=== PATIENT | male | born 1955 | race Caucasian/White ===

== ENCOUNTER 2017-02-18 07:36 | Outpatient (CLI) | payer BC, OTHER | END 2017-02-18 23:59 | DX: Z00.00 Encounter for general adult medical examination without abnormal findings (principal); E11.9 Type 2 diabetes mellitus without complications; Z79.899 Other long term (current) drug therapy; Z12.5 Encounter for screening for malignant neoplasm of prostate; E78.2 Mixed hyperlipidemia ==

== ENCOUNTER 2018-07-06 09:51 | Outpatient (CLI) | payer OTHER ==
[2018-07-06 17:42] LABS: BASOPHILS % (AUTO) 0.7 %; EOSINOPHILS # (AUTO) 0.1 10^3/uL (0.0-0.7); HGB - HEMOGLOBIN 14.9 g/dL (14.0-18.0); LYMPHOCYTES # (AUTO) 1.9 10^3/uL (1.5-3.5); LYMPHOCYTES % (AUTO) 30.8 %; MEAN CORPUSCULAR HEMOGLOBIN 27.9 pg (27.0-31.0); MEAN CORPUSCULAR HGB CONC 33.6 g/dL (32.0-36.0); MEAN CORPUSCULAR VOLUME 83.1 fL (80.0-94.0); MONOCYTES # (AUTO) 0.6 10^3/uL (0.0-1.0); MONOCYTES % (AUTO) 9.2 %; NEUTROPHILS # (AUTO) 3.6 10^3/uL (1.5-6.6); NEUTROPHILS % (AUTO) 57.3 %; PLT - PLATELET COUNT 232 10^3/uL (130-450); RED BLOOD COUNT 5.34 10^6/uL (4.70-6.10); RED CELL DISTRIBUTION WIDTH 14.4 % (12.0-15.0); WHITE BLOOD COUNT 6.2 x10^3/uL (4.8-10.8)
[2018-07-06 18:08] LABS: ALBUMIN 3.9 g/dL (3.2-5.5); ALBUMIN/GLOBULIN RATIO 1.2 (1.0-2.2); ALKALINE PHOSPHATASE 66 IU/L (42-121); ALT ALANINE AMINOTRANSFERASE 25 IU/L (10-60); AST ASPARTATE AMINOTRANSFERASE 18 IU/L (10-42); BILIRUBIN,TOTAL 0.7 mg/dL (0.2-1.0); BUN - BLOOD UREA NITROGEN 15 mg/dL (6-20); CARBON DIOXIDE - CO2 25 mmol/L (21-32); CHLORIDE 101 mmol/L (101-111); CHOL/HDL RATIO 4.1 (<5.0); CHOLESTEROL 135 mg/dL; CREATININE 1.1 mg/dL (0.6-1.2); GFR - MDRD 68 (>89); GLUCOSE 153 mg/dL (70-100); HDL CHOLESTEROL 33 mg/dL; LDL CHOLESTEROL,CALCULATED 78 mg/dL; LDL/HDL RATIO 2.4 (<3.6); SODIUM 134 mmol/L (135-145); TOTAL PROTEIN 7.2 g/dL (6.7-8.2); VLDL CHOLESTEROL 24 mg/dL
[2018-07-06 18:09] LABS: HB2 TOTAL 15.8 g/dL; HEMOGLOBIN A1C 0.92 g/dL; HEMOGLOBIN A1C % 7.5 % (4.6-6.2)
[2018-07-07 13:41] LABS: HEPATITIS C ANTIBODY NON-REACTIVE (NON-REACTIVE)
== END 2018-07-06 09:52 | disposition home or self-care (01) ==
LOC: LAB.F 09:51
PROVIDERS: ATTEND Physician Assistant Medical
DX: E11.9 Type 2 diabetes mellitus without complications (principal); I10 Essential (primary) hypertension; E78.2 Mixed hyperlipidemia; I25.10 Atherosclerotic heart disease of native coronary artery without angina pectoris; Z12.5 Encounter for screening for malignant neoplasm of prostate; Z13.818 Encounter for screening for other digestive system disorders; Z72.89 Other problems related to lifestyle
CPT/HCPCS: 36415; 80053; 80061; 83036; 83721; 84153; 85025; 86803

== ENCOUNTER 2019-11-06 08:40 | Outpatient (CLI) | payer BC ==
[2019-11-06 10:15] LABS: CALCIUM 9.7 mg/dL (8.5-10.3)
[2019-11-06 10:35] LABS: HB2 TOTAL 14.6 g/dL; HEMOGLOBIN A1C 1.18 g/dL; HEMOGLOBIN A1C % 9.5 % (4.6-6.2)
== END 2019-11-06 08:41 | disposition home or self-care (01) ==
LOC: LAB.S 08:40
PROVIDERS: ATTEND Nurse Practitioner
DX: E11.9 Type 2 diabetes mellitus without complications (principal)
CPT/HCPCS: 36415; 80048; 83036

== ENCOUNTER 2020-07-17 08:30 | Outpatient (CLI) | payer BC ==
[2020-07-17 15:33] LABS: BASOPHILS % (AUTO) 0.4 %; EOSINOPHILS # (AUTO) 0.2 10^3/uL (0.0-0.7); EOSINOPHILS % (AUTO) 1.8 %; LYMPHOCYTES # (AUTO) 2.7 10^3/uL (1.5-3.5); LYMPHOCYTES % (AUTO) 28.4 %; MEAN CORPUSCULAR HEMOGLOBIN 27.3 pg (27.0-31.0); MEAN CORPUSCULAR HGB CONC 31.7 g/dL (32.0-36.0); MEAN CORPUSCULAR VOLUME 86.2 fL (80.0-94.0); MEAN PLATELET VOLUME 11.6 fL (7.4-11.4); MONOCYTES # (AUTO) 0.7 10^3/uL (0.0-1.0); MONOCYTES % (AUTO) 7.2 %; NEUTROPHILS # (AUTO) 5.8 10^3/uL (1.5-6.6); NEUTROPHILS % (AUTO) 61.9 %; PLT - PLATELET COUNT 297 10^3/uL (130-450); RED BLOOD COUNT 5.49 10^6/uL (4.70-6.10); RED CELL DISTRIBUTION WIDTH 14.1 % (12.0-15.0); WHITE BLOOD COUNT 9.4 x10^3/uL (4.8-10.8)
[2020-07-17 16:14] LABS: ALBUMIN 3.9 g/dL (3.2-5.5); ALBUMIN/GLOBULIN RATIO 1.2 (1.0-2.2); ALKALINE PHOSPHATASE 67 IU/L (42-121); ALT ALANINE AMINOTRANSFERASE 38 IU/L (10-60); AST ASPARTATE AMINOTRANSFERASE 21 IU/L (10-42); BILIRUBIN,TOTAL 0.7 mg/dL (0.2-1.0); BUN - BLOOD UREA NITROGEN 20 mg/dL (6-20); CALCIUM 9.4 mg/dL (8.5-10.3); CARBON DIOXIDE - CO2 23 mmol/L (21-32); CHLORIDE 102 mmol/L (101-111); CHOL/HDL RATIO 3.3 (<5.0); CHOLESTEROL 120 mg/dL; CREATININE 1.1 mg/dL (0.6-1.2); GLUCOSE 171 mg/dL (70-100); HDL CHOLESTEROL 36 mg/dL; LDL CHOLESTEROL,CALCULATED 53 mg/dL; LDL/HDL RATIO 1.5 (<3.6); SODIUM 134 mmol/L (135-145); TOTAL PROTEIN 7.2 g/dL (6.7-8.2); VLDL CHOLESTEROL 31 mg/dL
[2020-07-17 18:48] LABS: HEMOGLOBIN A1c% 8.2 % (4.27-6.07)
== END 2020-07-17 08:31 | disposition home or self-care (01) ==
LOC: LAB.S 08:30
PROVIDERS: ATTEND Nurse Practitioner
DX: I10 Essential (primary) hypertension (principal); E11.9 Type 2 diabetes mellitus without complications; E78.2 Mixed hyperlipidemia; Z12.5 Encounter for screening for malignant neoplasm of prostate; Z79.899 Other long term (current) drug therapy; I25.10 Atherosclerotic heart disease of native coronary artery without angina pectoris; K21.9 Gastro-esophageal reflux disease without esophagitis
CPT/HCPCS: 36415; 80053; 80061; 83036; 83721; 84443; 85025

== ENCOUNTER 2021-12-11 07:50 | Outpatient (CLI) | payer BC ==
[2021-12-11 15:26] LABS: BASOPHILS % (AUTO) 0.5 %; EOSINOPHILS # (AUTO) 0.2 10^3/uL (0.0-0.7); EOSINOPHILS % (AUTO) 1.8 %; HCT - HEMATOCRIT 46.4 % (42.0-52.0); HGB - HEMOGLOBIN 14.6 g/dL (14.0-18.0); LYMPHOCYTES # (AUTO) 2.7 10^3/uL (1.5-3.5); LYMPHOCYTES % (AUTO) 30.8 %; MEAN CORPUSCULAR HEMOGLOBIN 26.5 pg (27.0-31.0); MEAN CORPUSCULAR HGB CONC 31.5 g/dL (32.0-36.0); MEAN CORPUSCULAR VOLUME 84.4 fL (80.0-94.0); MEAN PLATELET VOLUME 11.4 fL (7.4-11.4); MONOCYTES # (AUTO) 0.7 10^3/uL (0.0-1.0); MONOCYTES % (AUTO) 7.9 %; NEUTROPHILS # (AUTO) 5.1 10^3/uL (1.5-6.6); NEUTROPHILS % (AUTO) 58.8 %; PLT - PLATELET COUNT 308 10^3/uL (130-450); WHITE BLOOD COUNT 8.7 x10^3/uL (4.8-10.8)
[2021-12-11 16:10] LABS: ALBUMIN 3.7 g/dL (3.2-5.5); ALBUMIN/GLOBULIN RATIO 1.1 (1.0-2.2); ALKALINE PHOSPHATASE 60 IU/L (42-121); ALT ALANINE AMINOTRANSFERASE 26 IU/L (10-60); AST ASPARTATE AMINOTRANSFERASE 14 IU/L (10-42); BILIRUBIN,TOTAL 0.7 mg/dL (0.2-1.0); BUN - BLOOD UREA NITROGEN 20 mg/dL (6-20); CALCIUM 9.4 mg/dL (8.5-10.3); CARBON DIOXIDE - CO2 24 mmol/L (21-32); CHLORIDE 100 mmol/L (101-111); CHOL/HDL RATIO 3.5 (<5.0); CHOLESTEROL 113 mg/dL; GFR - MDRD 75 (>89); GLUCOSE 224 mg/dL (70-100); HDL CHOLESTEROL 32 mg/dL; LDL CHOLESTEROL,CALCULATED 59 mg/dL; LDL/HDL RATIO 1.8 (<3.6); POTASSIUM 4.5 mmol/L (3.5-5.0); SODIUM 133 mmol/L (135-145); TRIGLYCERIDES 111 mg/dL; VLDL CHOLESTEROL 22 mg/dL
[2021-12-11 16:14] LABS: MICROALBUM/CREATININE RATIO,UR 10.8 ug/mg (<30.0); MICROALBUMIN,URINE 1.8 mg/dL (0-300.0)
[2021-12-11 21:27] LABS: ESTIMATED AVERAGE GLUCOSE 289 mg/dL (70-100); HEMOGLOBIN A1c% 11.7 % (4.27-6.07)
== END 2021-12-11 07:51 | disposition home or self-care (01) ==
LOC: LAB.S 07:50
PROVIDERS: ATTEND Nurse Practitioner Family
DX: E11.9 Type 2 diabetes mellitus without complications (principal); E78.5 Hyperlipidemia, unspecified; I10 Essential (primary) hypertension
CPT/HCPCS: 36415; 80053; 80061; 82043; 82570; 83036; 83721; 84443; 85025

== ENCOUNTER 2022-03-08 08:08 | Outpatient (CLI) | payer BC, OTHER ==
[2022-03-08 20:06] LABS: ESTIMATED AVERAGE GLUCOSE 217 mg/dL (70-100); HEMOGLOBIN A1c% 9.2 % (4.27-6.07)
== END 2022-03-08 08:09 | disposition home or self-care (01) ==
LOC: LAB.S 08:08
PROVIDERS: ATTEND Nurse Practitioner Family
DX: E11.9 Type 2 diabetes mellitus without complications (principal)
CPT/HCPCS: 36415; 83036

== ENCOUNTER 2024-05-07 06:20 | Day surgery (SDC) | payer MEDICARE ==
[~2024-05-07 06:20] MED LIST: PROPOFOL 200 MG/20 ML VIAL IVP ONE; SEVOFLURANE 250 ML LIQUID INH ONE
[2024-05-07] MEDS ORDERED: ceFAZolin 2 GM VIAL ONE (06:23)
[2024-05-07] MEDS: LACTATED RINGERS 1,000 ML IV ONE (06:43)
--- NOTE | 2024-05-07 06:59 | ANESTHESIA ---
Pre-Anesthesia VS, & Labs - Diagnosis Left Spermatocele - Procedure Spermatocelectomy Vital Signs: Temp Pulse Resp BP Pulse Ox O2 Flow Rate 36.1 C L 80 20 154/87 H 98 05/07/24 06:26 05/07/24 06:26 05/07/24 06:26 05/07/24 06:26 05/07/24 06:26 Height: 5 ft 9.5 in Weight (kg): 98.7 kg Body Mass Index: 31.6 BMI Classification: Obese - Lab Results Current Lab Results: Laboratory Tests 05/07/24 06:38: POC Whole Bld Glucose 172 H Home Medications and Allergies Home Medications: Ambulatory Orders Atorvastatin Calcium [Lipitor] 80 mg PO DAILY 04/30/24 Insulin Glargine [Lantus Solostar] 25 unit SUBQ QPM 04/30/24 Lisinopril [Zestril] 10 mg PO DAILY 04/30/24 Metformin HCl 1,000 mg PO BID 04/30/24 Nitroglycerin [Nitrostat] 0.4 mg SL [id number] 04/30/24 Atorvastatin Calcium [Lipitor] 80 mg PO DAILY 04/30/24 Insulin Glargine [Lantus Solostar] 25 unit SUBQ QPM 04/30/24 Lisinopril [Zestril] 10 mg PO DAILY 04/30/24 Metformin HCl 1,000 mg PO BID 04/30/24 Nitroglycerin [Nitrostat] 0.4 mg SL [id number] 04/30/24 Allergies/Adverse Reactions: Allergies Allergy/AdvReac Type Severity Reaction Status Date / Time No Known Drug Allergies Allergy Verified 04/30/24 14:39 Anes History & Medical History - Medical History Cardiovascular: reports: Hypertension, High cholesterol, [place] Pulmonary: reports: None Gastrointestinal: reports: GERD Urinary: reports: None Musculoskeletal: reports: None Endocrine/Autoimmune: reports: Type 2 diabetes Skin: reports: None - Surgical History General: reports: Appendectomy, Colonoscopy Cardiothoracic: reports: CABG Exam General: Alert, Oriented x3, Cooperative Dental: WNL Mouth Openin Fingerbreadth Mallampati classification: II Thyromental Distance: 4-6 cm Plan Anesthesia Type: General Consent for Procedure(s) Verified and Reviewed: Yes Code Status: Attempt Resuscitation ASA classification: 2-Mild systemic disease Is this case an emergency?: No
[2024-05-07] MEDS ORDERED: lidocaine 1% 20 ML MDV ONE (07:04)
[2024-05-07] MEDS ORDERED: BUPIVACAINE 0.5% PF 10 ML VIAL ONE (07:04)
[2024-05-07] MEDS ORDERED: BACITRACIN ZINC OINT 1 PACKET TOP ONE (07:08)
[2024-05-07] MEDS ORDERED: fentaNYL 100 MCG/2 ML VIAL ONE (07:10)
[2024-05-07] MEDS ORDERED: DEXAMETHASONE 4 MG/ML VIAL ONE (07:10)
[2024-05-07] MEDS ORDERED: MIDAZOLAM 2 MG/2 ML VIAL ONE (07:10)
[2024-05-07] MEDS ORDERED: ONDANSETRON 4 MG/2 ML VIAL ONE (07:10)
[2024-05-07] MEDS ORDERED: HYDROmorphone 0.5 MG/0.5 ML SYRINGE IVP PRN (07:13)
[2024-05-07] MEDS ORDERED: ATROPINE ABBOJECT 1 MG/10 ML SYRINGE IVP PRN (07:13)
[2024-05-07] MEDS ORDERED: ePHEDrine 50 MG/ML VIAL IVP PRN (07:13)
[2024-05-07] MEDS ORDERED: NALOXONE 0.4 MG/ML VIAL IVP PRN (07:13)
[2024-05-07] MEDS ORDERED: ONDANSETRON 4 MG/2 ML VIAL IVP PRN ×2 (07:13→08:47)
[2024-05-07] MEDS ORDERED: MORPHINE 2 MG/ML CARPUJECT IVP PRN (07:13)
[2024-05-07] MEDS ORDERED: fentaNYL 100 MCG/2 ML VIAL IVP PRN (07:13)
[2024-05-07] MEDS ORDERED: ePHEDrine 50 MG/ML VIAL IVP ONE (07:44)
[2024-05-07] MEDS: BUPIVACAINE 0.5% PF 10 ML VIAL IM ONE ×2 (07:46)
[2024-05-07] MEDS: LIDOCAINE 1% 50 ML MDV SUBQ ONE ×2 (07:47)
[2024-05-07] MEDS ORDERED: LACTATED RINGERS 1,000 ML IV SCH (08:00)
[2024-05-07] MEDS: LACTATED RINGERS 400 ML IV ONE (08:44)
[2024-05-07] MEDS ORDERED: HYDROcod/ACETAM 5/325 MG TABLET PO PRN (08:47)
--- NOTE | 2024-05-07 08:54 | OPERATIVE REPORT ---
Operative Report - General Planned Procedure: Scrotal exploration, left spermatocelectomy Pre-Op Diagnosis: Left spermatocele Procedure Performed: Scrotal expiration, left spermatocelectomy, left hydrocelectomy Post Op Diagnosis: Left spermatocele, left hydrocele - Procedure Note Primary Surgeon: Jayden Anesthesia Provider: ITZEL Miller Anesthesia Technique: General LMA Pathology: left spermatocele Estimated Blood Loss (mL): 2 Findings: Very large multiloculated spermatocele removed en bloc and dissected without perforation to 1 single neck Long looping vas deferens Mild hydrocele Complications: none - Other Other Information/Narrative: After informed sent was obtained the patient was brought to the OR and laid in the supine position. The patient was anesthetized per anesthesia protocols and prepped and draped in usual sterile fashion. A formal timeout was performed confirming patient, procedure and laterality. He was noted to have a swelling of his left scrotum consistent with a spermatocele Local with a mixture of half percent Marcaine and 1% lidocaine without epinephrine was placed in the midline raphae and a 6 cm incision was made using combination of electrocautery and blunt dissection. The tunica vaginalis was delivered on the left side. A hydrocele was noted. The tunica vaginalis was entered and moderate amount of straw-colored fluid emanated from it consistent with a hydrocele fluid. Redundant tunica vaginalis was excised to prevent future hydrocele. We can then see he had a large spermatocele attached to the posterior aspect of the testicle. Through significant and meticulous dissection we were able to dissect this large multiloculated spermatocele which was about 12 cm in size all the way down to the neck. This was then suture-ligated using 0 Vicryl. He did have a long looping vas deferens and this was preserved. Spot cautery used for hemostasis. There was excellent hemostasis overall. The testicle was replaced in orthotopic fashion. The area was irrigated with copious saline. The dartos was closed with running 3-0 Vicryl suture. The skin was closed using a combination of running and horizontal mattress 3-0 chromic suture. Antibacterial ointment, gauze and a Tegaderm were placed. Fluffs and a scrotal support were then placed. This concluded the procedure the patient tolerated the procedure well. All counts were correct. He was brought to PACU without further incident. He will follow-up in 6 weeks time
[2024-05-07 09:31] VITALS: BP 141/84; O2SAT 92
--- NOTE | 2024-05-07 10:03 | ANESTHESIA POST OP EVALUATION ---
Anesthesia Post Eval - Post Anesthesia Eval Vitals: Last Vital Signs Temp 36.2 C L 05/07/24 09:21 Pulse 92 05/07/24 09:21 Resp 16 05/07/24 09:21 BP 141/84 H 05/07/24 09:21 Pulse Ox 92 05/07/24 09:21 O2 Flow Rate CV Function Including HR & BP: Stable Pain Control: Satisfactory Nausea & Vomiting: Negative Mental Status: Baseline Respiratory Status: Airway Patent Hydration Status: Satisfactory Anesthesia Complications: None
--- NOTE | 2024-05-07 10:14 | Discharge Plan ---
Discharge Plan Problem Reviewed?: Yes Disposition: Home, Self Care Condition: Good Prescriptions: Docusate Sodium 100Mg Capsule [Colace 100Mg Capsule] 100 mg PO DAILY #14 cap cephALEXin [Keflex] 500 mg PO Q6H #12 cap oxyCODONE [Roxicodone] 5 mg PO Q4H PRN #10 tablet PRN Reason: Pain Diet: Regular Activity Restrictions: Additional Comments (as instructed) Shower Restrictions: No Driving Restrictions: No Instruction Topics: Hydrocelectomy Surg Additional Instructions or Follow Up instructions: Will be contacted for follow-up Dr. Carpenter in 6 weeks time No Smoking: If you smoke, Please STOP! Call for help.
== END 2024-05-07 06:21 | disposition home or self-care (01) ==
LOC: SDS 06:20
PROVIDERS: ATTEND Urology
PROC: 0VB70ZZ Excision of Left Tunica Vaginalis, Open Approach (ICD-10-PCS; 2024-05-07)
PROC: 0VBK0ZZ Excision of Left Epididymis, Open Approach (ICD-10-PCS; principal; 2024-05-07 07:30)
DX: N43.41 Spermatocele of epididymis, single (principal); N43.3 Hydrocele, unspecified; E66.9 Obesity, unspecified; Z68.31 Body mass index [BMI] 31.0-31.9, adult; E11.9 Type 2 diabetes mellitus without complications; Z79.84 Long term (current) use of oral hypoglycemic drugs; Z79.4 Long term (current) use of insulin; I25.2 Old myocardial infarction; Z95.1 Presence of aortocoronary bypass graft; I10 Essential (primary) hypertension
CPT/HCPCS: 54840; 55040; A9270; J3490; J7120